=== PATIENT | female | born 1955 | race Two or more races ===

== ENCOUNTER 2017-10-30 19:25 | Emergency (ER) | payer OTHER ==
[~2017-10-30] VITALS: Ht 160 cm; Wt 83.9 kg
[~2017-10-30 19:25] MED LIST: LOSARTAN-HCTZ1 EAC1; METFORMIN HCL500 M2; SYNTHROID50 MCG
[2017-10-30] MEDS ORDERED: CIPRO500 MG PO (23:13)
== END 2017-10-30 23:55 | disposition home or self-care (01) ==
LOC: ER 19:25
DX: B34.9 Viral infection, unspecified (principal); N39.0 Urinary tract infection, site not specified; J11.1 Influenza due to unidentified influenza virus with other respiratory manifestations; R82.79 Other abnormal findings on microbiological examination of urine

== ENCOUNTER 2018-06-02 08:10 | Outpatient (CLI) | payer OTHER ==
[~2018-06-02 08:10] MED LIST changes: +CIPRO500 MG PO
== END 2018-06-02 08:31 | disposition home or self-care (01) ==
LOC: NUCLEAR 08:10
DX: M81.0 Age-related osteoporosis without current pathological fracture (principal); Z13.820 Encounter for screening for osteoporosis

== ENCOUNTER 2021-03-16 13:00 | Emergency (ER) | payer OTHER ==
[~2021-03-16] VITALS: Ht 175.3 cm; Wt 79.4 kg
[2021-03-16] MEDS ORDERED: LEVOTHYROXINE25 MCG PO (13:43)
[2021-03-16] MEDS ORDERED: PRAVASTATIN SOD20 MG PO (13:43)
[2021-03-16] MEDS ORDERED: JANUMET XR 50-1 EACH PO (13:43)
[2021-03-16] MEDS ORDERED: GLUCOTROL XL5 MG PO (13:44)
[2021-03-16] MEDS ORDERED: DRAMAMINE LESS25 MG PO (15:30)
== END 2021-03-16 15:36 | disposition home or self-care (01) ==
LOC: ER 13:00
DX: R42 Dizziness and giddiness (principal)

== ENCOUNTER 2022-04-01 12:51 | Outpatient (CLI) | payer OTHER ==
[~2022-04-01 12:51] MED LIST changes: +DRAMAMINE LESS25 MG PO; +GLUCOTROL XL5 MG PO; +JANUMET XR 50-1 EACH PO; +LEVOTHYROXINE25 MCG PO; +PRAVASTATIN SOD20 MG PO
== END 2022-04-01 13:07 | disposition home or self-care (01) ==
LOC: MAMO-SONO 12:51
DX: M25.561 Pain in right knee (principal); M17.11 Unilateral primary osteoarthritis, right knee; M25.562 Pain in left knee; M17.12 Unilateral primary osteoarthritis, left knee; N64.9 Disorder of breast, unspecified; Z12.31 Encounter for screening mammogram for malignant neoplasm of breast

== ENCOUNTER 2022-12-16 13:51 | Emergency (ER) | payer OTHER ==
[~2022-12-16] VITALS: Ht 165.1 cm; Wt 77.1 kg
[2022-12-16] MEDS ORDERED: SIMVASTATIN20 MG PO (14:17)
[2022-12-16] MEDS ORDERED: LOSARTAN-HCTZ1 EAC1 PO (14:17)
[2022-12-16] MEDS ORDERED: FAMOTIDINE40 MG PO (14:18)
[2022-12-16] MEDS ORDERED: PEPCID AC20 MG PO (19:16)
== END 2022-12-16 19:36 | disposition home or self-care (01) ==
LOC: ER 13:51
DX: R19.7 Diarrhea, unspecified (principal); Z20.822 Contact with and (suspected) exposure to COVID-19; E11.9 Type 2 diabetes mellitus without complications; Z79.84 Long term (current) use of oral hypoglycemic drugs; I10 Essential (primary) hypertension